=== PATIENT | male | born 2000 | race Caucasian/White ===

== ENCOUNTER 2024-09-07 02:53 | Emergency (ER) | payer BC, SELFPAY ==
[2024-09-07 03:05] VITALS: BP 105/65; PULSE 68; RESP 16; TEMP 36.8; O2SAT 98; BMI 25.9
--- NOTE | 2024-09-07 04:02 | ED_ITS ---
HPI - Eye Problem General Chief complaint: Eye Problems Stated complaint: eye pain Time Seen by Provider: 09/07/24 04:02 Source: patient Mode of arrival: ambulatory Limitations: no limitations History of Present Illness ED Provider: cheryl HPI Narrative: Apparently 5 hours prior to arrival was hit to his left eye by the soccer ball while playing outside been having intermittent blurriness and flashes of light and periods of dark brownish no scotomas symptoms are getting better now no loss of consciousness no other injuries Related Data Allergies Allergy/AdvReac Type Severity Reaction Status Date / Time No Known Allergies Allergy Verified 09/07/24 03:11 Review of Systems Review of Systems: Yes all other systems are reviewed and are negative PMFSH Social History Social History (Reviewed 09/08/24 @ 01:04 EDT by Andres Yusuf MD) Advance Directives: No Advance Directives Information Provided: No Physical Exam Vital Signs: Vital Signs: Last Vital Signs Temp 98.2 F 09/07/24 04:44 Pulse 68 09/07/24 04:44 Resp 16 09/07/24 04:44 BP 105/65 09/07/24 04:44 Pulse Ox 98 09/07/24 04:44 O2 Del Method Room Air 09/07/24 04:44 BMI result Body Mass Index 25.9 Appearance: Alert. Oriented X3. No acute distress. EYES: Right eye normal left eye fluorescein test negative for corneal abrasion fundus exam negative for any blood collection anterior chamber normal posterior chamber normal EOMI ENT: Pharynx normal. Oral Mucosa moist Neck: Normal inspection. Neck supple. CVS: Normal heart rate and rhythm. Pulses normal. Respiratory: No respiratory distress. Equal air entry bilateral, no wheezing/rales/rhonchi Skin: Skin warm and dry. Normal skin color. Normal skin turgor. Extremities: No lower extremity edema. Neuro: Oriented X 3. Medications Administered Discontinued Medications Generic Name Dose Route Start Last Admin Trade Name Freq PRN Reason Stop Dose Admin Fluorescein Sodium 1 strip 09/07/24 04:06 09/07/24 04:11 Fluorescein Sodium Strip EYE-LEFT 09/07/24 04:07 1 strip ONCE ONE Administration Medical Decision Making Medical Decision Making [facility] Narrative: Patient likely with blunt injury to the left eye at this time there is no signs of deeper injuries no bleeding in the posterior or anterior chamber Differential Diagnosis Differential Diagnoses: The differential diagnosis associated with the presentation includes vitreous hematoma/anterior chamber damage/corneal abrasion Discharge Plan Discharge Clinical Impression: Blunt injury, left eye Patient Disposition: Home, Self-Care Instructions: Facial Contusion (ED) Additional Instructions: Your eye symptoms should get better with time If Blurred vision/black spots continues see 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
[2024-09-07] MEDS: Fluorescein Sodium STRIP 1 STRIP EYE-LEFT (04:11)
[2024-09-07 04:44] VITALS: BP 105/65; PULSE 68; RESP 16; TEMP 36.8; O2SAT 98
== END 2024-09-07 04:46 | disposition home or self-care (01) ==
PROVIDERS: Emergency Provider Internal Medicine
DX: S05.92XA Unspecified injury of left eye and orbit, initial encounter (principal); W21.02XA Struck by soccer ball, initial encounter; Y93.66 Activity, soccer; Y92.322 Soccer field as the place of occurrence of the external cause; Y99.9 Unspecified external cause status
CPT/HCPCS: 99282